=== PATIENT | female | born 1965 | race Caucasian/White ===

== ENCOUNTER → 2020-12-24 | Outpatient (CLI) ==
[~2020-12-24] MED LIST: SERT50TA29 PO
== END ==
LOC: M LABSMTC 09:27
PROVIDERS: ATTEND Anesthesiology
DX: Z01.812 Encounter for preprocedural laboratory examination (principal); Z20.822 Contact with and (suspected) exposure to COVID-19

== ENCOUNTER 2020-12-29 04:14 | Emergency (ER) | payer BC ==
[~2020-12-29] VITALS: Ht 157.5 cm; Wt 61.0 kg
[2020-12-29 05:36] LABS: BASO % 0.3 % (0.0-1.0); EOS # 0.1 10^3/uL (0.0-0.5); EOS % 0.9 % (0.0-3.0); HEMATOCRIT 39.1 % (36.0-47.0); HEMOGLOBIN 13.1 g/dl (12.0-15.5); LYMPH % 9.7 % (24.0-44.0); MEAN CORPUSCULAR HEMOGLOBIN 32.4 pg (27.0-33.0); MEAN CORPUSCULAR HGB CONC 33.5 g/dl (32.0-36.5); MEAN CORPUSCULAR VOLUME 96.8 fl (80.0-96.0); MONO # 0.5 10^3/uL (0.0-0.8); NEUTROPHILS # 8.9 10^3/uL (1.5-8.5); NEUTROPHILS % 83.7 % (36.0-66.0); PLATELET COUNT, AUTOMATED 254 10^3/uL (150-450); RED BLOOD COUNT 4.04 10^6/uL (4.00-5.40); WHITE BLOOD COUNT 10.6 10^3/uL (4.0-10.0)
--- NOTE | 2020-12-29 05:56 | REPVR ---
PROCEDURE INFORMATION: Exam: XR Chest Exam date and time: 12/29/2020 5:37 AM Age: 55 years old Clinical indication: Pain; Other: Unspecified; Additional info: Chest pain TECHNIQUE: Imaging protocol: XR of the chest. Views: 1 view. COMPARISON: No relevant prior studies available. FINDINGS: Lungs: There is nonspecific symmetric mild biapical pleural thickening.. No consolidation. Pleural spaces: Unremarkable. No pleural effusion. No pneumothorax. Heart/Mediastinum: Unremarkable. No cardiomegaly. Bones/joints: Unremarkable. IMPRESSION: No acute findings. Electronically signed by: Jeff Sanders On 12/29/2020 05:56:14 AM
[2020-12-29 06:07] LABS: BLOOD UREA NITROGEN 11 MG/DL (7-18); CALCIUM LEVEL 8.2 MG/DL (8.5-10.1); CARBON DIOXIDE LEVEL 20 MEQ/L (21-32); CHLORIDE LEVEL 110 MEQ/L (98-107); CK-MB VALUE MASS < 1.0 NG/ML (<3.6); CPK CREATINE PHOSPHOKINASE 36 U/L (26-192); CREATININE FOR GFR 0.59 MG/DL (0.55-1.30); GLOMERULAR FILTRATION RATE > 60.0 (>51); GLUCOSE, FASTING 115 MG/DL (70-100); MB/CK RELATIVE INDEX 2.78 (< OR =4); POTASSIUM SERUM 3.8 MEQ/L (3.5-5.1); SODIUM LEVEL 139 MEQ/L (136-145); TROPONIN I < 0.02 NG/ML (< 0.10)
[2020-12-29 06:30] VITALS: BP 124/79
--- NOTE | 2020-12-30 05:15 | ECGEPIP ---
- ED Test Date: 2020-12-29 Pat Name: MARILEE WOODRUFF Department: Room: - Gender: Female Clerical Office Worker: er : 1965 Requested By: GIULIANO Finley Order Number: [id number] Reading MD: Jonh Rose Measurements Intervals [place] Rate: 97 P: 74 PA: 136 QRS: 60 QRSD: 82 T: 68 QT: 340 QTc: 431 Interpretive Statements Normal sinus rhythm Comparison tracing not on file Electronically Signed on 12-30-2020 5:15:15 EDT by Jonh Rose
== END 2020-12-29 06:59 | disposition home or self-care (01) ==
LOC: M ED 04:14
DX: R11.10 Vomiting, unspecified (principal); R68.84 Jaw pain; M79.10 Myalgia, unspecified site

== ENCOUNTER 2020-12-29 06:59 | Day surgery (SDC) | payer BC ==
[~2020-12-29] VITALS: Ht 157.5 cm; Wt 62.6 kg
[~2020-12-29 06:59] MED LIST changes: +NS 1,000 ML IV ONE
--- NOTE | 2020-12-29 08:00 | ROOR ---
Patient Name: Laura Moreno Procedure Date: 12/29/2020 7:37 AM Date of : 1965 Age: 55 Room: [facility] Gender: Female Note Status: Finalized Procedure: Total Colonoscopy to Cecum Indications: Screening for colorectal malignant neoplasm Providers: Ishaan Decker MD Referring MD: Beth ALVES MD Requesting Provider: Medicines: Monitored Anesthesia Care Complications: No immediate complications. Procedure: Pre-Anesthesia Assessment: - The heart rate, respiratory rate, oxygen saturations, blood pressure, adequacy of pulmonary ventilation, and response to care were monitored throughout the procedure. The Colonoscope was introduced through the anus and advanced to the cecum, identified by appendiceal orifice and ileocecal valve. The colonoscopy was performed without difficulty. The patient tolerated the procedure well. The quality of the bowel preparation was excellent. Findings: The perianal and digital rectal examinations were normal. No other significant abnormalities were identified in a careful examination of the remainder of the colon. The exam was otherwise without abnormality on direct and retroflexion views. Impression: - The examination was otherwise normal on direct and retroflexion views. - No specimens collected. - The exam was otherwise normal to the cecum. Recommendation: - Patient has a contact number available for emergencies. The signs and symptoms of potential delayed complications were discussed with the patient. Return to normal activities tomorrow. Written discharge instructions were provided to the patient. - High fiber diet. - Discharge patient to home. - Continue present medications. - Repeat colonoscopy in 10 years for screening purposes. - Return to referring physician. - The findings and recommendations were discussed with the patient's family. Procedure Code(s): --- Professional --- 42911, Colonoscopy, flexible; diagnostic, including collection of specimen(s) by brushing or washing, when performed (separate procedure) Diagnosis Code(s): --- Professional --- Z12.11, Encounter for screening for malignant neoplasm of colon CPT copyright 2019 [employer]. All rights reserved. The codes documented in this report are preliminary and upon auto repair shop manager review may be revised to meet current compliance requirements. Ishaan Decker MD Ishaan Decker MD 12/29/2020 7:59:53 AM Electronically signed by Ishaan Decker MD Number of Addenda: 0 Note Initiated On: 12/29/2020 7:37 AM Estimated Blood Loss: Estimated blood loss: none.
[2020-12-29] MEDS ORDERED: propofoL 500 MG/50 ML VIAL As Ordered ONE (08:12)
[2020-12-29] MEDS ORDERED: LIDOCAINE 2% 100MG/5ML SDV (FOR ANES.) As Ordered ONE (08:12)
[2020-12-29 08:17] VITALS: BP 139/72
== END 2020-12-29 08:19 | disposition home or self-care (01) ==
LOC: M OPP 06:59
PROVIDERS: ATTEND Internal Medicine Gastroenterology
DX: Z12.11 Encounter for screening for malignant neoplasm of colon (principal); Z79.899 Other long term (current) drug therapy

== ENCOUNTER 2022-03-16 13:59 | Emergency (ER) | payer BC ==
[~2022-03-16] VITALS: Ht 157.5 cm; Wt 65.9 kg
[~2022-03-16 13:59] MED LIST changes: -NS 1,000 ML IV ONE
[2022-03-16] MEDS ORDERED: HYDR12.55 PO (14:11)
[2022-03-16 15:18] LABS: BASO # 0.1 10^3/uL (0.0-0.2); BASO % 0.8 % (0.0-1.0); EOS # 0.1 10^3/uL (0.0-0.5); EOS % 1.8 % (0.0-3.0); HEMATOCRIT 39.7 % (36.0-47.0); HEMOGLOBIN 13.4 g/dl (12.0-15.5); LYMPH # 2.2 10^3/uL (1.5-5.0); LYMPH % 33.5 % (24.0-44.0); MEAN CORPUSCULAR HEMOGLOBIN 32.3 pg (27.0-33.0); MEAN CORPUSCULAR HGB CONC 33.8 g/dl (32.0-36.5); MEAN CORPUSCULAR VOLUME 95.7 fl (80.0-96.0); MONO # 0.8 10^3/uL (0.0-0.8); MONO % 11.9 % (2.0-8.0); NEUTROPHILS # 3.4 10^3/uL (1.5-8.5); NEUTROPHILS % 51.7 % (36.0-66.0); PLATELET COUNT, AUTOMATED 262 10^3/uL (150-450); RED BLOOD COUNT 4.15 10^6/uL (4.00-5.40); WHITE BLOOD COUNT 6.6 10^3/uL (4.0-10.0)
[2022-03-16 15:53] LABS: ALBUMIN 3.6 GM/DL (3.2-5.2); ALT/SGPT 18 U/L (12-78); BILIRUBIN,DIRECT 0.1 MG/DL (0.0-0.2); BILIRUBIN,TOTAL 0.3 MG/DL (0.2-1.0); BLOOD UREA NITROGEN 20 MG/DL (7-18); CALCIUM LEVEL 9.4 MG/DL (8.5-10.1); CARBON DIOXIDE LEVEL 29 MEQ/L (21-32); CHLORIDE LEVEL 105 MEQ/L (98-107); CREATININE FOR GFR 0.57 MG/DL (0.55-1.30); GLOMERULAR FILTRATION RATE > 60.0 (>51); GLUCOSE, FASTING 102 MG/DL (70-100); POTASSIUM SERUM 3.8 MEQ/L (3.5-5.1); SODIUM LEVEL 138 MEQ/L (136-145); TOTAL PROTEIN 6.9 GM/DL (6.4-8.2)
[2022-03-16 16:52] LABS: APPEARANCE, URINE MANUAL HAZY (CLEAR); COLOR, URINE MANUAL YELLOW (YELLOW)
[2022-03-16 16:54] LABS: BILIRUBIN, URINE MANUAL NEGATIVE (NEGATIVE); BLOOD URINE MANUAL TRACE (NEGATIVE); GLUCOSE, URINE (UA) MANUAL NEGATIVE (NEGATIVE); KETONE, URINE MANUAL NEGATIVE (NEGATIVE); LEUKOCYTE ESTERASE, URINE MAN POSITIVE (NEGATIVE); NITRITE, URINE MANUAL NEGATIVE (NEGATIVE); PROTEIN, URINE MANUAL NEGATIVE (NEGATIVE); UROBILINOGEN, URINE MANUAL NORMAL (NORMAL)
[2022-03-16 17:18] LABS: BACTERIA, URINE LARGE AMOUNT; HYALINE CAST, URINE NONE SEEN /lpf (0-1); SQUAMOUS EPITHELIAL CELL URINE LARGE AMOUNT /hpf (SMALL AMT)
[2022-03-16] MEDS ORDERED: HYDR-3490 PO (18:02)
[2022-03-16 18:05] LABS: FREE THYROXINE INDEX 1.9 % (1.3-4.8); T UPTAKE 34 % (30-39); THYROXINE (T4) 5.6 UG/DL (4.5-12.0)
[2022-03-16 18:14] VITALS: BP 150/70
== END 2022-03-16 18:17 | disposition home or self-care (01) ==
LOC: M ED 16:37
DX: I10 Essential (primary) hypertension (principal); R94.31 Abnormal electrocardiogram [ECG] [EKG]; F41.9 Anxiety disorder, unspecified; Z79.899 Other long term (current) drug therapy

== ENCOUNTER → 2022-10-19 | Outpatient (REF) | payer BC ==
[~2022-10-19] MED LIST changes: +HYDR-3490 PO; +HYDR12.55 PO
[2022-10-19 13:16] LABS: FOLLICLE STIMULATING HORMONE 14.5 mIU/ML; LUTEINIZING HORMONE 14.2 mIU/ML
== END ==
LOC: M LAB REF 12:22
PROVIDERS: ATTEND Internal Medicine
DX: N91.2 Amenorrhea, unspecified (principal)

== ENCOUNTER 2023-07-21 21:32 | Emergency (ER) | payer BC ==
[~2023-07-21] VITALS: Ht 157.5 cm; Wt 71.9 kg
[2023-07-21] MEDS ORDERED: ISOVUE-370 76% 100ML VIAL As Ordered ONE (22:20)
[2023-07-21 22:29] LABS: HEMATOCRIT 39.5 % (36.0-47.0); HEMOGLOBIN 13.5 g/dl (12.0-15.5); MEAN CORPUSCULAR HEMOGLOBIN 31.6 pg (27.0-33.0); MEAN CORPUSCULAR HGB CONC 34.2 g/dl (32.0-36.5); MEAN CORPUSCULAR VOLUME 92.5 fl (80.0-96.0); PLATELET COUNT, AUTOMATED 305 10^3/uL (150-450); RED BLOOD COUNT 4.27 10^6/uL (4.00-5.40); WHITE BLOOD COUNT 7.6 10^3/uL (4.0-10.0)
[2023-07-21 22:44] LABS: INR 0.96; PROTHROMBIN TIME 12.5 SECONDS (12.5-14.5)
[2023-07-21 23:06] LABS: ALBUMIN 3.8 G/DL (3.2-5.2); ALKALINE PHOSPHATASE 106 U/L (46-116); ALT/SGPT 22 U/L (7.0-40); AST/SGOT 17 U/L (<34); BILIRUBIN,TOTAL 0.3 MG/DL (0.3-1.2); BLOOD UREA NITROGEN 20 MG/DL (9-23); CALCIUM LEVEL 9.4 MG/DL (8.5-10.1); CARBON DIOXIDE LEVEL 28 MMOL/L (20-31); CHLORIDE LEVEL 106 MMOL/L (98-107); CHOLESTEROL LEVEL 255 MG/DL (<200); CHOLESTEROL RISK RATIO 2.71 (<5); CREATININE FOR GFR 0.51 MG/DL (0.55-1.30); GLOMERULAR FILTRATION RATE > 60.0 (>51); GLUCOSE, FASTING 84 MG/DL (60-100); HDL CHOLESTEROL 93.9 MG/DL (>40); LDL CHOLESTEROL 130.7 MG/DL (<100); NON-HDL-C 161.1 MG/DL; POTASSIUM SERUM 3.6 MMOL/L (3.5-5.1); SODIUM LEVEL 141 MMOL/L (136-145); TOTAL PROTEIN 7.3 G/DL (5.7-8.2); TRIGLYCERIDES LEVEL 152 MG/DL (<150)
[2023-07-21] MEDS ORDERED: TETRACAINE 0.5% OPHTH SOLN 4ML OD ONE (23:30)
[2023-07-21] MEDS ORDERED: FLUORESCEIN OPHTH 1MG STRIP OD ONE (23:40)
[2023-07-22 00:12] LABS: C REACTIVE PROTEIN QUANTITATIV < 0.40 MG/DL (<1.0)
[2023-07-22 00:41] LABS: ERYTHROCYTE SEDIMENTATION RATE 30 mm/hr (0-30)
[2023-07-22 02:10] VITALS: BP 138/67; TEMP 97.5; O2SAT 99
== END 2023-07-22 02:34 | disposition home or self-care (01) ==
LOC: M ED 21:32
DX: H33.8 Other retinal detachments (principal); Z79.899 Other long term (current) drug therapy
CPT/HCPCS: 36415; 70450; 70496; 70498; 80047; 80053; 80061; 85027; 85610; 85652; 85730; 86140; 99284; Q9967

== ENCOUNTER → 2024-02-27 | Outpatient (CLI) | payer BC | LOC: M WUC 08:08 | PROVIDERS: ATTEND Internal Medicine | DX: G83.9 Paralytic syndrome, unspecified (principal) ==

== ENCOUNTER 2024-10-01 18:02 | Emergency (ER) | payer BC ==
[~2024-10-01] VITALS: Ht 157.5 cm; Wt 70.0 kg
[2024-10-01 18:47] LABS: BASO % 0.4 % (0.0-1.0); HEMATOCRIT 38.1 % (36.0-47.0); HEMOGLOBIN 12.9 g/dl (12.0-15.5); LYMPH # 1.7 10^3/uL (1.5-5.0); LYMPH % 30.3 % (24.0-44.0); MEAN CORPUSCULAR HEMOGLOBIN 31.1 pg (27.0-33.0); MEAN CORPUSCULAR HGB CONC 33.9 g/dl (32.0-36.5); MEAN CORPUSCULAR VOLUME 91.8 fl (80.0-96.0); MONO # 0.5 10^3/uL (0.0-0.8); MONO % 9.6 % (2.0-8.0); NEUTROPHILS # 3.3 10^3/uL (1.5-8.5); NEUTROPHILS % 59.5 % (36.0-66.0); PLATELET COUNT, AUTOMATED 253 10^3/uL (150-450); RED BLOOD COUNT 4.15 10^6/uL (4.00-5.40); WHITE BLOOD COUNT 5.5 10^3/uL (4.0-10.0)
[2024-10-01] MEDS ORDERED: HYDR-3490 (18:48)
[2024-10-01] MEDS ORDERED: VENL75CA47 (18:48)
[2024-10-01 19:14] LABS: ALBUMIN 3.4 G/DL (3.2-5.2); ALKALINE PHOSPHATASE 77 U/L (35-104); ALT/SGPT 24 U/L (7.0-40); AST/SGOT 28 U/L (<34); BILIRUBIN,DIRECT < 0.1 MG/DL (<0.4); BILIRUBIN,TOTAL 0.4 MG/DL (0.3-1.2); BLOOD UREA NITROGEN 16 MG/DL (9-23); CALCIUM LEVEL 8.3 MG/DL (8.5-10.1); CARBON DIOXIDE LEVEL 26 MMOL/L (20-31); CHLORIDE LEVEL 104 MMOL/L (98-107); CREATININE FOR GFR 0.52 MG/DL (0.55-1.30); GLOMERULAR FILTRATION RATE > 60.0 (>51); GLUCOSE, FASTING 88 MG/DL (60-100); MAGNESIUM LEVEL 1.6 MG/DL (1.8-2.4); PHOSPHORUS LEVEL 2.5 MG/DL (2.5-4.9); POTASSIUM SERUM 4.4 MMOL/L (3.5-5.1); SODIUM LEVEL 138 MMOL/L (136-145); TOTAL PROTEIN 6.7 G/DL (5.7-8.2)
[2024-10-01 19:36] LABS: CK-MB VALUE MASS < 1.0 NG/ML (<3.6)
[2024-10-01 19:49] LABS: PROLACTIN 62.81 NG/ML
[2024-10-01 19:55] LABS: CPK CREATINE PHOSPHOKINASE 51 U/L (34-145); MB/CK RELATIVE INDEX 1.96 (< OR =4)
[2024-10-01] MEDS: KETOROLAC 30 MG/ML 1ML VIAL IV ONE (19:58)
[2024-10-01] MEDS: NS (Normal Saline) 0.9% 1,000 ML IV ONE (19:58)
[2024-10-01] MEDS: ACETAMINOPHEN *IV* 1,000 MG in IV 1 EA IV ONE (20:00)
[2024-10-01] MEDS: MAG SULF 1GM/100ML (MAG RUN) 1 GM in IV 1 EA IV ONE (20:01)
[2024-10-01] MEDS ORDERED: HEPARIN SOD (PORCINE) 5000UNITS/ML 1ML VIAL/SYRINGE IV PRN (21:10)
[2024-10-01] MEDS ORDERED: ISOVUE-370 76% 100ML VIAL As Ordered ONE (21:11)
[2024-10-01] MEDS: ASPIRIN 325 MG TAB PO ONE (21:28)
[2024-10-01 22:02] LABS: HEMATOCRIT 39.3 % (36.0-47.0); HEMOGLOBIN 13.2 g/dl (12.0-15.5); MEAN CORPUSCULAR HEMOGLOBIN 30.9 pg (27.0-33.0); MEAN CORPUSCULAR HGB CONC 33.6 g/dl (32.0-36.5); PLATELET COUNT, AUTOMATED 262 10^3/uL (150-450); RED BLOOD COUNT 4.27 10^6/uL (4.00-5.40); WHITE BLOOD COUNT 9.3 10^3/uL (4.0-10.0)
[2024-10-01] MEDS: HEPARIN DRIP 25,000 UNITS in IV 1 EA IV SCH (22:10)
[2024-10-01 23:43] VITALS: BP 119/57; TEMP 98.2; O2SAT 99
== END 2024-10-01 23:50 | disposition short-term general hospital (02) ==
LOC: M ED 18:02 → EDBD 18:02 → M ED 23:50
DX: I21.4 Non-ST elevation (NSTEMI) myocardial infarction (principal); G40.89 Other seizures; E83.42 Hypomagnesemia; I45.10 Unspecified right bundle-branch block; I10 Essential (primary) hypertension; F41.9 Anxiety disorder, unspecified; Z79.899 Other long term (current) drug therapy
CPT/HCPCS: 70450; 71275; 72125; 80047; 80048; 80076; 82550; 82553; 83605; 83735; 84100; 84146; 84484; 85025; 85027; 85730; 93005; 94760; 96365; 96366; 96375; 99285; J0131; J1885; J3475; Q9967